=== PATIENT | male | born 1955 | race Caucasian/White ===

== ENCOUNTER 2025-01-24 06:33 | Day surgery (SDC) | payer OTHER ==
[2025-01-10 08:33] LABS: Absolute Lymphocytes (CBC) 1.2 K/uL (0.7-4.9); Hematocrit 42.7 % (39.6-49.0); Hemoglobin 14.4 g/dL (13.6-17.9); MCH 28.9 pg (27.0-35.0); MCHC 33.8 g/dL (32.0-36.0); MCV 85.5 fL (80-100); MPV 8.4 fL (7.6-11.3); Nucleated RBC Absolute Count 0.0 (0-0); Nucleated Red Blood Cells % 0.1 % (0-0); RBC Red Blood Cell Count 4.99 M/uL (4.33-5.43); White Blood Count 8.40 thou/uL (4.3-10.9)
[2025-01-10 08:39] LABS: PT Prothrombin Time 12.6 SECONDS (10-13.0); Protime INR 1.12
[2025-01-10 08:39] LABS: Sqamous Epithelial <5 /HPF (None Seen); Urine Culture Reflex Order REFLEXED; Urine Microscopic Reflex YN ORDER UMIC; Urine Yeast (Budding) Trace /HPF (None Seen)
[2025-01-10 08:47] LABS: Anion Gap 8.9 mEq/L (5.0-15.0); BUN Blood Urea Nitrogen 20.0 mg/dL (7-18); Glucose Level 147.0 mg/dL (74-106); Potassium 3.9 mEq/L (3.5-5.1)
--- NOTE | 2025-01-10 09:05 | RAD REPORT ---
EXAMINATION: TWO VIEW CHEST XR CLINICAL INDICATION: Pre-op pending cystolitholapaxy and urolift TECHNIQUE: 2 views of the chest was performed. COMPARISON: No prior exam. FINDINGS: Mild pulmonary edema is a possibility. Mild linear atelectasis in left lung base. Heart is mildly enl arged in size. No displaced fractures evident. IMPRESSION: Mild CHF versus volume overload pattern is suspected.
[2025-01-24] MEDS ORDERED: LIDOCAINE 1% MPF 5 ML VIAL ONE (06:53)
[2025-01-24] MEDS ORDERED: FENTANYL CITR 100 MCG/2 ML ONE (06:53)
[2025-01-24] MEDS ORDERED: SUCCINYLCHOLINE 20 MG/ML (10 ML) IV ONE (06:57)
[2025-01-24] MEDS ORDERED: NS 0.9% VIAL 10 ML ONE (07:01)
[2025-01-24] MEDS ORDERED: Phenylephrine HCl 10 MG/ML 1 ML VIAL ONE (07:01)
[2025-01-24] MEDS: Ringers Lactate 1,000 ML IV ONE (07:05)
[2025-01-24] MEDS ORDERED: EPHEDRINE SULF 50 MG/ML VIAL ONE (07:48)
[2025-01-24] MEDS: GENTAMICIN 80 MG/100 ML BAG 240 MG/300 ML BAG IV ONE (07:50)
[2025-01-24] MEDS: AMPICILLIN SODIUM 2 GM/VIAL VIAL ONE (07:51)
[2025-01-24] MEDS ORDERED: ONDANSETRON 4 MG/2 ML VIAL ONE (07:52)
[2025-01-24] MEDS ORDERED: CODEINE 30MG/APAP 300MG TAB PO PRN (08:56)
--- NOTE | 2025-01-24 08:56 | P.OP ---
Date of Service: 01/24/25 Preoperative diagnoses: Bladder calculi, several with largest approximately 0.5 to 1 cm BPH with obstruction and LUTS Parkinson's disease Postoperative diagnoses: Bladder calculi, several with largest approximately 0.5 to 1 cm BPH with obstruction and LUTS Parkinson's disease Principal procedures: Cystolitholapaxy Prostatic urethral lift with 7 implants placed successfully Insertion of 18 Tristanian urethral Hagan catheter Indications for procedure: 69-year-old gentleman with Parkinson's disease and obstructive LUTS presented to the urology clinic. He was found to have bladder calculi in addition to obstruction due to BPH and was counseled on recommendation for management of both. Procedure note: The patient was consented in the preoperative holding area before being transferred to the operative suite where general anesthesia was induced. He was given ampicillin 2 g and gentamicin 240 mg IV antimicrobial prophylaxis with pneumoboots provided for DVT prophylaxis. He was placed in the lithotomy position, padded and secured to the table appropriately, and his genitalia was prepped with Hibiclens before being draped in standard fashion. The case was begun using a 22 Tristanian rigid cystoscope to traverse the urethra and into the bladder with relative ease. The bladder was decompressed of fluid and urine before being refilled with sterile saline and surveyed. The dominant bladder calculus was visible along with some other smaller calculi fragments. I was able to easily remove the calculi fragments using the cystoscope, but the dominant calculus required the stone nurse orthopedic device to grasp and crush in order to remove it mostly intact. This was sent for chemical analysis. I then switched the 22 Tristanian rigid cystoscope for the 20 Tristanian UroLift sheath with a visual obturator to traverse the urethra and into the bladder again. I then switched the obturator for the UroLift delivery device and the first implant. This implant was targeted at the patient's bladder neck, approximately 1.5 to 2 cm distal to the bladder neck opening on the patient's left at around the 1 o'clock position. The scope was angled 15 degrees against the tissue in that location, and the trigger pulled once delivering the needle through the substance of the prostate. A second pull of the trigger did deploy the capsular tab and partially retract the needle. A third pull of the trigger did completely retract the needle and began to tension the suture. I then advanced the scope back toward the midline and 2 to 3 mm toward the bladder neck opening until the white line of the monofilament was centered in the delivery bay. At this point, I pulled the trigger a fourth time deploying the urethral end piece and tailoring the suture. I then advanced the scope back into the bladder and switched the delivery device for the second implant. This implant was then targeted using all of the steps mentioned above in the contralateral position high anteriorly at around 11:00 on the patient's right side, approximately 1.5 to 2 cm distal to the bladder neck opening. After successful placement of that implant, the bladder neck was elevated and largely opened. There was still significant kissing and interdigitating lateral lobar hypertrophy between the mid zone of the prostate and the apex. As a result, I then turned my attention to the apex where I targeted the lateral lobar hypertrophy at the level of the verumontanum on the patient's left side at the 3 o'clock position anteriorly. After this implant was successfully placed, I placed a fourth implant at the 9 o'clock position anteriorly on the patient's right side at the level of the verumontanum. Survey of the channel revealed persistent significant interdigi tating lateral lobar hypertrophy in the mid zone of the prostate; so I used a 5th implant targeting the tissue just proximal to the urethral end piece at the apex on the patient's left side. A 6th implant was targeted contralaterally just proximal to the urethral end piece placed at the apex on the patient's right side within the mid zone of the prostate. I then utilized a visual obturator to survey the channel created, and there was some residual interdigitating lateral lobar hypertrophy between the mid zone implant placed on the patient's left side and the bladder neck implant also on the left side. As a result, I targeted that tissue using a 7th and final implant placed anteriorly, ultimately creating a beautiful continuous anterior channel visible from the verumontanum into the bladder. I then advanced the scope back into the bladder and irrigated the bladder to remove any clot material. I then retrograde filled his bladder and removed the scope before placing an 18 Tristanian urethral Hagan catheter with ease. 20 cc of sterile water was placed in the balloon, and I then irrigated the catheter further using the 30 cc syringe. With the urine returning light pink, I then connected the catheter to a leg bag and took the patient out of the lithotomy position. He was then awakened from general anesthesia before being transferred to a stretcher. He was then transferred to the recovery room in good condition. Complications: None Discharge disposition: Given his underlying Parkinson's disease, I recommend he keep the catheter overnight and undergo a voiding trial in the morning. He will be offered the opportunity to have the catheter removed at home at 7 AM sharp, but if he is not comfortable with this approach, he may need to come into the urology clinic for an active voiding trial. He will continue on the preoperatively prescribed antimicrobials and follow-up should otherwise be established in about 1 month's time.
[2025-01-24] MEDS ORDERED: PHENAZOPYRIDINE 100MG TAB PO ONE (09:38)
[2025-01-24] MEDS ORDERED: OXYBUTYNIN ER 5 MG TAB PO ONE (09:39)
[2025-01-24] MEDS: OXYBUTYNIN ER 5 MG TAB PO ONE (09:42)
[2025-01-24] MEDS: PHENAZOPYRIDINE 100MG TAB PO ONE (09:42)
[2025-01-24 14:37] VITALS: BP 155/93; TEMP 98.4; O2SAT 97
== END 2025-01-24 10:40 | disposition home or self-care (01) ==
LOC: OR 06:33
PROVIDERS: ATTEND Urology
PROC: 0TCB8ZZ Extirpation of Matter from Bladder, Via Natural or Artificial Opening Endoscopic (ICD-10-PCS; principal; 2025-01-24 07:30)
PROC: 0T7D8DZ Dilation of Urethra with Intraluminal Device, Via Natural or Artificial Opening Endoscopic (ICD-10-PCS; 2025-01-24 07:30)
DX: N40.1 Benign prostatic hyperplasia with lower urinary tract symptoms (principal); N21.0 Calculus in bladder; N13.8 Other obstructive and reflux uropathy; G20.A1 Parkinson's disease without dyskinesia, without mention of fluctuations
CPT/HCPCS: 93005; 87088; 85025; 81001; 87086; 80048; 36415; 85610; 88300; 82360; 71046; 52317; 52441; 52442 ×6; A4216; J2704; J2003; J2371; J3010; J1100; J2405; J0290; J7120; J1580; J0330

== ENCOUNTER 2025-01-25 07:20 | Emergency (ER) | payer OTHER ==
--- NOTE | 2025-01-25 08:13 | ER ---
Nurse's Notes [facility] Name: Bean August Age: 69 yrs Sex: Male : 1955 Arrival Date: 01/25/2025 Time: 07:20 Bed 7 Private MD: Diagnosis: Other mechanical complication of urinary (indwelling) catheter-removal Presentation: 01/25 07:40 Chief complaint: Spouse and/or significant other states: JEFFERS PLACED Y/D AFTER bp URO-LIFT BY [facility], TO BE REMOVED AT HOME THIS AM BUT FAMILY DOES NOT HAVE NECESSARY EQUIPMENT. Coronavirus screen: At this time, the client does not indicate any symptoms associated with coronavirus-19. Ebola Screen: No symptoms or risks identified at this time. Initial Sepsis Screen: Does the patient meet any 2 criteria? No. Patient's initial sepsis screen is negative. Does the patient have a suspected source of infection? No. Patient's initial sepsis screen is negative. Risk Assessment: Do you want to hurt yourself or someone else? Patient reports no desire to harm self or others. Onset of symptoms was January 24, 2025 at 07:00. 07:40 Method Of Arrival: Ambulatory bp 07:40 Acuity: CHAN 4 bp Triage Assessment: 07:42 General: Appears in no apparent distress. Behavior is calm, cooperative, appropriate bp for age. Pain: Complains of pain in pelvis. EENT: No deficits noted. Neuro: No deficits noted. Cardiovascular: No deficits noted. Respiratory: No deficits noted. GI: No signs and/or symptoms were reported involving the gastrointestinal system. : No signs and/or symptoms were reported regarding the genitourinary system. Derm: No deficits noted. Musculoskeletal: No deficits noted. Historical: - Allergies: 07:42 No Known Allergies; bp - PMHx: 07:42 arthritis of the spine; Diet controlled DM; enlarged prostate; Hypertensive disorder; bp Parkinsons; - Immunization history:: Adult Immunizations up to date. - Infectious Disease History:: Denies. - Social history:: Smoking status: Patient denies any tobacco usage or history of. Screenin:40 [facility] ED Fall Risk Assessment (Adult) History of falling in the last 3 months, km10 including since admission No falls in past 3 months (0 pts) Confusion or Disorientation No (0 pts) Intoxicated or Sedated No (0 pts) Impaired Gait No (0 pts) Mobility Assist Device Used No (0 pt) Altered Elimination Yes (1 pt) Score/Fall Risk Level 0 - 2 = Low Risk Oriented to surroundings, Maintained a safe environment, Educated pt \T\ family on fall prevention, incl call for assistance when getting out of bed, Assessed \T\ reinforced patient's understanding of fall precautions. 07:40 Abuse screen: Denies threats or abuse. Denies injuries from another. Nutritional km10 screening: No deficits noted. Tuberculosis screening: No symptoms or risk factors identified. Assessment: 07:45 General: Appears in no apparent distress. uncomfortable, Behavior is calm, cooperative. cm10 Neuro: No deficits noted. Level of Consciousness is awake, alert, obeys commands, Oriented to person, place, time, situation, Appropriate for age. Respiratory: No deficits noted. Airway is patent Respiratory effort is even, unlabored, Respiratory pattern is regular, symmetrical. : Jeffers in place to gravity drainage. Vital Signs: 07:40 BP 117 / 84; Pulse 83; Resp 16; Temp 97.6; Pulse Ox 97% ; bp ED Course: 07:28 Patient arrived in ED. im 07:28 Robert Durbin MD is Attending Physician. karin 07:42 Triage completed. bp 07:42 Arm band placed on. bp 07:47 Juanis Jones, RN is Primary Nurse. km10 07:48 No provider procedures requiring assistance completed. km10 07:49 Jeffers cath removed intact, balloon deflated, 22mL of saline removed from baloon. cm10 07:51 Patient has correct armband on for positive identification. Placed in gown. Bed in low cm10 position. Call light in reach. Provided Education on: ER process and procedures. 08:12 Brian De Los Santos MD is Referral Physician. karin 08:28 Patient did not have IV access during this emergency room visit. cm10 Administered Medications: No medications were administered Medication: 07:51 VIS not applicable for this client. cm10 Outcome: 08:13 Discharge ordered by . karin 08:28 Discharged to home ambulatory, with significant other, cm10 08:28 Condition: good 08:28 Discharge instructions given to patient, Instructed on discharge instructions, follow up and referral plans. Demonstrated understanding of instructions, follow-up care, 08:29 Patient left the ED. cm10 Signatures: Robert Durbin MD MD cha Peltier, Brian, RN RN bp Jewels Cheng Clarissa, RN RN cm10 Juanis Jones RN RN km10
--- NOTE | 2025-01-25 08:13 | EDPHYS ---
Physician Documentation [facility] Name: Bean August Age: 69 yrs Sex: Male : 1955 Arrival Date: 01/25/2025 Time: 07:20 Bed 7 Private MD: ED Physician Robert Durbin HPI: 01/25 08:07 This 69 yrs old Male presents to ER via Ambulatory with complaints of Problem karin With Urinary Catheter. 08:07 The patient presents with a Wilson catheter problem, needs wilson removed. Onset: The karin symptoms/episode began/occurred 1 day(s) ago. Modifying factors: The symptoms are alleviated by nothing, the symptoms are aggravated by nothing. Associated signs and symptoms: The patient has no apparent associated signs or symptoms. Severity of symptoms: At their worst the symptoms were mild, in the emergency department the symptoms are unchanged. Historical: - Allergies: 07:42 No Known Allergies; bp - PMHx: 07:42 arthritis of the spine; Diet controlled DM; enlarged prostate; Hypertensive disorder; bp Parkinsons; - Immunization history:: Adult Immunizations up to date. - Infectious Disease History:: Denies. - Social history:: Smoking status: Patient denies any tobacco usage or history of. ROS: 08:09 Constitutional: Negative for fever, chills, and weight loss, Eyes: Negative for injury, karin pain, redness, and discharge, ENT: Negative for injury, pain, and discharge, Neck: Negative for injury, pain, and swelling, Cardiovascular: Negative for chest pain, palpitations, and edema, Respiratory: Negative for shortness of breath, cough, wheezing, and pleuritic chest pain, Abdomen/GI: Negative for abdominal pain, nausea, vomiting, diarrhea, and constipation, Back: Negative for injury and pain, MS/Extremity: Negative for injury and deformity, Skin: Negative for injury, rash, and discoloration, Neuro: Negative for headache, weakness, numbness, tingling, and seizure, Psych: Negative for depression, anxiety, suicide ideation, homicidal ideation, and hallucinations, Allergy/Immunology: Negative for hives, rash, and allergies, Endocrine: Negative for neck swelling, polydipsia, polyuria, polyphagia, and marked weight changes, Hematologic/Lymphatic: Negative for swollen nodes, abnormal bleeding, and unusual bruising, 08:09 : Positive for urinary symptoms, wilson needs removal , had lift yesterday, Exam: 08:09 Constitutional: This is a well developed, well nourished patient who is awake, alert, karin and in no acute distress. Head/Face: Normocephalic, atraumatic. Eyes: Pupils equal round and reactive to light, extra-ocular motions intact. Lids and lashes normal. Conjunctiva and sclera are non-icteric and not injected. Cornea within normal limits. Periorbital areas with no swelling, redness, or edema. ENT: Nares patent. No nasal discharge, no septal abnormalities noted. Tympanic membranes are normal and external auditory canals are clear. Oropharynx with no redness, swelling, or masses, exudates, or evidence of obstruction, uvula midline. Mucous membranes moist. Neck: Trachea midline, no thyromegaly or masses palpated, and no cervical lymphadenopathy. Supple, full range of motion without nuchal rigidity, or vertebral point tenderness. No Meningismus. Chest/axilla: Normal chest wall appearance and motion. Nontender with no deformity. No lesions are appreciated. Cardiovascular: Regular rate and rhythm with a normal S1 and S2. No gallops, murmurs, or rubs. Normal PMI, no JVD. No pulse deficits. Respiratory: Lungs have equal breath sounds bilaterally, clear to auscultation and percussion. No rales, rhonchi or wheezes noted. No increased work of breathing, no retractions or nasal flaring. Abdomen/GI: Soft, non-tender, with normal bowel sounds. No distension or tympany. No guarding or rebound. No evidence of tenderness throughout. Back: No spinal tenderness. No costovertebral tenderness. Full range of motion. Skin: Warm, dry with normal turgor. Normal color with no rashes, no lesions, and no evidence of cellulitis. MS/ Extremity: Pulses equal, no cyanosis. Neurovascular intact. Full, normal range of motion., bilateral aka Neuro: Awake and alert, GCS 15, oriented to person, place, time, and situation. Cranial nerves II-XII grossly intact. Motor strength 5/5 in all extremities. Sensory grossly intact. Cerebellar exam normal. Normal gait. Psych: Awake, alert, with orientation to person, place and time. Behavior, mood, and affect are within normal limits. 08:09 : Male external genitalia: normal, Bladder: is normal, Sexual behavior: the patient is not sexually active, Vital Signs: 07:40 BP 117 / 84; Pulse 83; Resp 16; Temp 97.6; Pulse Ox 97% ; bp MDM: 07:29 Medical Screening Exam initiated [facility] 08:10 Differential diagnosis: nonspecific abdominal pain, UTI, urinary retention, Wilson karin catheter problem, prostatitis, urethritis. Data reviewed: vital signs, nurses notes, lab test result(s), urinalysis. Consideration of Admission/Observation Escalation of care including admission/observation considered. I considered the following discharge prescriptions or medication management in the emergency department Medications were administered in the Emergency Department. See MAR. Test considered but Not performed: Labs: no labs. Historians other than the Patient: pt well informed. Care significantly affected by the following chronic conditions: Diabetes, Hypertension. 01/25 07:40 Order name: Noemic. Order: remove wilson; Complete Time: 07:47 karin Administered Medications: No medications were administered Disposition Summary: 01/25/25 08:13 Discharge Ordered Notes: Location: Home [facility] Problem: new karin Symptoms: have improved karin Condition: Stable karin Diagnosis - Other mechanical complication of urinary (indwelling) catheter - removal karin Followup: karin - With: Private Physician - When: 1 - 2 days - Reason: Recheck today's complaints, Continuance of care, Re-evaluation by your physician Followup: karin - With: Brian De Los Santos MD - When: 2 - 3 days - Reason: Recheck today's complaints, Re-evaluation by your physician Discharge Instructions: - Discharge Summary Sheet karin - Indwelling Urinary Catheter Care, Adult karin - Indwelling Urinary Catheter Care, Adult, [id number] Forms: - Medication Reconciliation Form karin - Antibiotic Education karin - Prescription Opioid Use karin - Patient Portal Instructions karin - Leadership Thank You Letter [facility] Signatures: Dispatcher [employer] EDMS Robert Durbin MD MD cha Peltier, Brian, RN RN bp Corrections: (The following items were deleted from the chart) 07:40 07:30 Wilson ordered. [facility] 08:15 08:15 UA Rfx Kunal Cult if indicated+U.LAB.BRZ ordered. EDMS EDMS
[2025-01-25 10:48] VITALS: BP 117/84; TEMP 97.6; O2SAT 97
== END 2025-01-25 08:29 | disposition home or self-care (01) ==
LOC: ER 07:20
DX: T83.098A Other mechanical complication of other urinary catheter, initial encounter (principal); E11.9 Type 2 diabetes mellitus without complications; I10 Essential (primary) hypertension; G20.A1 Parkinson's disease without dyskinesia, without mention of fluctuations
CPT/HCPCS: 99282